=== PATIENT | male | born 1950 | race Caucasian/White ===

== ENCOUNTER → 2021-11-18 | Outpatient (CLI) | payer OTHER ==
[~2021-11-18] MED LIST: ACET500; ASPI81EC PO; BACL10; CLOP75; LISI20 PO; LOSARTAN-HCTZ1 EAC2; ROSU10TA
== END ==
LOC: LAB SHORT 14:15 → PLD 14:15
DX: D48.5 Neoplasm of uncertain behavior of skin (principal); R21 Rash and other nonspecific skin eruption
CPT/HCPCS: 88312

== ENCOUNTER → 2023-12-07 | Outpatient (CLI) | payer OTHER | LOC: LAB SHORT 13:59 → PLD 13:59 | DX: D48.5 Neoplasm of uncertain behavior of skin (principal) | CPT/HCPCS: 88312 ==

== ENCOUNTER 2024-12-19 11:14 | Day surgery (SDC) | payer OTHER ==
[~2024-12-19] VITALS: Ht 175.3 cm; Wt 65.8 kg
[~2024-12-19 11:14] MED LIST changes: +Balanced Salt Epinephrine Irrigation Solution 500 mL IR SCH; +Moxifloxacin HCL 0.5 MG/0.1 ML 0.4MLSYR RIGHTEYE SCH; +Ondansetron 4 MG SoluTab MM PRN; +PHENYLEPHRINE\\TROPICAMIDE\\TETRACAINE OPHTHALMIC DILATING SOLN RIGHTEYE PRN; +Povidone-Iodine 450 DROP/30 ML Solution ONE; +Povidone-Iodine 450 DROP/30 ML Solution RIGHTEYE SCH; +Tetracaine HCl/Pf 0.5% Opth Soln 4 ml ONE
[2024-12-19] MEDS ORDERED: ROSUVASTATIN CA20 MG PO (11:55)
[2024-12-19] MEDS ORDERED: [UNRECOGNIZED DRUG - CODE] (11:55)
[2024-12-19] MEDS ORDERED: [UNRECOGNIZED DRUG - OTHER] NEB (11:57)
[2024-12-19] MEDS ORDERED: ALLERGY PILL (11:57)
[2024-12-19] MEDS ORDERED: FORMOTEROL NEB (11:57)
--- NOTE | 2024-12-19 12:16 | NUR ---
12/19/24 1216 Sonia Jackson TETRACAINE IN EYE 1150, PLEDGET IN EYE 1151. PT. VERBALIZES "1" 1146 1214 "0".
--- NOTE | 2024-12-19 12:31 | NUR ---
12/19/24 1231 Diane Smith 1225 BP 162/84, HR 55, O2 AT 97% 16 RESP
[2024-12-19 12:53] VITALS: BP 145/83
== END 2024-12-19 12:52 | disposition home or self-care (01) ==
LOC: ORSCSDS 11:14
PROVIDERS: Student in an Organized Health Care Education/Training Program
PROC: 08RJ3JZ Replacement of Right Lens with Synthetic Substitute, Percutaneous Approach (ICD-10-PCS; principal; 2024-12-19 13:00)
DX: H25.811 Combined forms of age-related cataract, right eye (principal); Z96.1 Presence of intraocular lens; Z86.73 Personal history of transient ischemic attack (TIA), and cerebral infarction without residual deficits; H35.89 Other specified retinal disorders; R06.02 Shortness of breath; I10 Essential (primary) hypertension; I25.2 Old myocardial infarction; Z79.899 Other long term (current) drug therapy
CPT/HCPCS: A9270; V2632